=== PATIENT | male | born 1955 | race Caucasian/White ===

== ENCOUNTER 2021-12-26 10:03 | Outpatient (CLI) | payer OTHER, MEDICARE, SELFPAY ==
[2021-12-26 11:37] LABS: Basophils % 0.4 %; Eosinophils # 0.2 10^3/uL (0.0-0.8); Eosinophils % 2.8 %; Hematocrit 55.7 % (42.0-52.0); Hemoglobin 19.9 g/dL (11.7-16.6); Lymphocytes # 1.2 10^3/uL (0.8-4.8); Lymphocytes % 18.4 %; Mean Corpuscular HGB Conc 35.7 g/dL (30.0-36.0); Mean Corpuscular Hemoglobin 33.2 pg (28.0-34.0); Mean Corpuscular Volume 92.8 fl (80-94); Mean Platelet Volume 9.5 fL (7.4-10.4); Monocytes # 0.5 10^3/uL (0.2-0.9); Monocytes % 7.8 %; Neutrophils # 4.69 10^3/uL (1.8-7.7); Nucleated Red Blood Cells % 0 %; Platelet Count 192 10^3/cmm (130-400); Red Cell Distribution Width 11.8 % (12.1-15.1); White Blood Count 6.7 10^3/uL (4.0-10.0)
[2021-12-26 12:10] LABS: Alanine Aminotransferase 50 U/L (0-41); Albumin Level 4.8 g/dL (3.5-5.2); Alkaline Phosphatase 63 IU/L (40-130); Anion Gap 13.6 (5-19); Aspartate Amino Transferase 33 U/L (0-40); Blood Urea Nitrogen 10 mg/dL (8-23); Calcium 8.9 mg/dL (8.5-10.5); Carbon Dioxide 27 mmol/L (22-29); Chloride 99 mmol/L (98-107); Chol HDL Ratio 4.11 mg/dL (1.0-5.00); Cholesterol 144 mg/dL (0-200); Globulin 2.7 g/dL (1.3-4.6); Glomerular Filtration Rate 134.4 mL/min (90-130); Glucose 95 mg/dL (65-115); HDL Cholesterol 35 mg/dL (60-100); LDL Cholesterol Calculated 88 mg/dL (50-129); LDL HDL Ratio 2.51 RATIO (0.00-3.22); Osmolality Calculated 281 mOsm/kg (285-295); Potassium 3.6 mmol/L (3.5-5.1); Sodium 136 mmol/L (136-145); Total Bilirubin 0.9 mg/dL (0.15-1.2); Total Protein 7.5 g/dL (6.6-8.7); Triglycerides 107 mg/dL (0-150)
[2021-12-30 15:18] LABS: Testosterone, Free 215.9 pg/mL (46.0-224.0)
== END 2021-12-26 10:04 | disposition home or self-care (01) ==
PROVIDERS: PCP Family Medicine; Visit Provider Family Medicine
DX: G47.30 Sleep apnea, unspecified (principal); I10 Essential (primary) hypertension; E29.1 Testicular hypofunction
CPT/HCPCS: 36415; 80053; 80061; 84153; 84402; 84403; 85025

== ENCOUNTER 2022-02-26 09:42 | Outpatient (CLI) | payer OTHER, MEDICARE, SELFPAY ==
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
== END 2022-02-26 09:43 | disposition home or self-care (01) ==
LOC: RAD 09:46
PROVIDERS: PCP Family Medicine; Visit Provider Family Medicine
DX: M16.12 Unilateral primary osteoarthritis, left hip
CPT/HCPCS: 73502

== ENCOUNTER → 2023-03-16 15:17 | Outpatient (BNVA) | payer OTHER, MEDICARE, SELFPAY | PROVIDERS: PCP Family Medicine; Visit Provider Family Medicine | DX: R79.89 Other specified abnormal findings of blood chemistry (principal); D75.1 Secondary polycythemia; E29.1 Testicular hypofunction | CPT/HCPCS: 85025 ==

== ENCOUNTER → 2023-04-06 11:12 | Outpatient (BNVA) | payer OTHER, MEDICARE, SELFPAY | PROVIDERS: PCP Family Medicine; Visit Provider Family Medicine | DX: J32.9 Chronic sinusitis, unspecified (principal); N52.9 Male erectile dysfunction, unspecified; I10 Essential (primary) hypertension; D75.1 Secondary polycythemia; R79.89 Other specified abnormal findings of blood chemistry; Z12.5 Encounter for screening for malignant neoplasm of prostate | CPT/HCPCS: 80053; 80061; 84403; 84443; G0103 ==

== ENCOUNTER → 2024-05-16 11:30 | Outpatient (BNVA) | payer OTHER, MEDICARE, SELFPAY | PROVIDERS: PCP Family Medicine; Visit Provider Family Medicine | DX: R79.89 Other specified abnormal findings of blood chemistry (principal); E29.1 Testicular hypofunction; N52.9 Male erectile dysfunction, unspecified; D75.1 Secondary polycythemia; Z12.5 Encounter for screening for malignant neoplasm of prostate | CPT/HCPCS: 80053; 80061; 84403; 84443; 85025; G0103 ==

== ENCOUNTER → 2024-09-08 11:00 | Outpatient (BNVA) | payer OTHER, MEDICARE, SELFPAY | PROVIDERS: PCP Family Medicine; Visit Provider Family Medicine | DX: E29.1 Testicular hypofunction (principal); R79.89 Other specified abnormal findings of blood chemistry; D75.1 Secondary polycythemia | CPT/HCPCS: 80053; 84403; 85025; G0103 ==

== ENCOUNTER 2025-04-28 09:37 | Oncology outpatient (recurring) (ONCR) | payer OTHER, MEDICARE, SELFPAY ==
[2025-04-28 10:49] LABS: Hematocrit 56.8 % (37-53); Hemoglobin 20.00 g/dL (11.27-16.99); Mean Corpuscular HGB Conc 35.2 g/dL (30-55); Mean Corpuscular Hemoglobin 33.1 pg (27-33); Mean Corpuscular Volume 93.9 fl (82-101); Platelet Count 188 10^3/cmm (157-399); Red Blood Count 6.05 10^6/uL (3.85-5.65); White Blood Count 5.78 10^3/uL (3.29-11.43)
[2025-04-28 11:39] LABS: Iron 309 ug/dL (59-158)
[2025-04-28 11:40] LABS: Ferritin 146 ng/mL (30-400)
== END 2025-04-28 23:59 | disposition home or self-care (01) ==
LOC: ONCMED 09:38
PROVIDERS: PCP Family Medicine; Visit Provider Internal Medicine
DX: R79.89 Other specified abnormal findings of blood chemistry (principal); D75.1 Secondary polycythemia; E29.1 Testicular hypofunction
CPT/HCPCS: 36415; 82728; 83540; 84403; 85027; 99195

== ENCOUNTER 2025-05-05 09:17 | Oncology outpatient (recurring) (ONCR) | payer OTHER, MEDICARE, SELFPAY ==
[2025-05-05 09:46] LABS: Hematocrit 53.1 % (37-53); Hemoglobin 19.00 g/dL (11.27-16.99); Mean Corpuscular HGB Conc 35.8 g/dL (30-55); Mean Corpuscular Hemoglobin 33.2 pg (27-33); Mean Corpuscular Volume 92.7 fl (82-101); Nucleated Red Blood Cells % 0 %; Platelet Count 200 10^3/cmm (157-399); Red Blood Count 5.73 10^6/uL (3.85-5.65); White Blood Count 5.95 10^3/uL (3.29-11.43)
[2025-05-05 10:03] LABS: Ferritin 277 ng/mL (30-400); Iron 95 ug/dL (59-158)
== END 2025-05-28 23:59 | disposition home or self-care (01) ==
LOC: ONCMED 09:18
PROVIDERS: PCP Family Medicine; Visit Provider Family Medicine
DX: D75.1 Secondary polycythemia (principal)
CPT/HCPCS: 36415; 82728; 83540; 85025; 99195

== ENCOUNTER → 2025-05-10 18:18 | Outpatient (BNVA) | payer OTHER, MEDICARE, SELFPAY | PROVIDERS: PCP Family Medicine | DX: M79.672 Pain in left foot (principal); M77.8 Other enthesopathies, not elsewhere classified; R93.7 Abnormal findings on diagnostic imaging of other parts of musculoskeletal system | CPT/HCPCS: 73630 ==